=== PATIENT | female | born 1985 | race Caucasian/White ===

== ENCOUNTER → 2017-06-26 | Outpatient (CLI) | payer OTHER ==
[~2017-06-26] MED LIST: Ferrous Sulfat325 M2 PO; PNV PRENATAL P1 EACH PO
[2017-06-28 13:34] LABS: HPV Genotype 16 Not Detected (NOTDET); HPV Genotype 18 Not Detected (NOTDET)
[2017-07-02 10:54] LABS: HPV High Risk Other Not Detected (NOTDET)
== END | disposition home or self-care (01) ==
LOC: LAB 18:08
PROVIDERS: Obstetrics & Gynecology
DX: Z36.89 Encounter for other specified antenatal screening (principal)
CPT/HCPCS: 87491; 87591; 87624; G0123

== ENCOUNTER → 2017-07-26 | Outpatient (CLI) | payer OTHER ==
[2017-07-26 11:22] LABS: Source, Urine Clean Catch
[2017-07-26 13:54] LABS: Appearance, Urine Clear (Clear); Bilirubin, Urine Neg (Neg); Blood, Urine Neg (Neg); Color, Urine Yellow (P-Yellow); Glucose Qualitative, Urine Neg (Neg); Ketones, Urine Neg (Neg); Leukocyte Esterase, Urine Neg (Neg); Nitrite, Urine Neg (Neg); Protein, Urine Neg (Neg); Specific Gravity, Urine 1.015 (1.003-1.022); Urobilinogen, Urine NORM (Normal); pH, Urine 6.5 (5.0-8.0)
== END | disposition home or self-care (01) ==
LOC: LAB 11:10
PROVIDERS: Obstetrics & Gynecology
DX: R82.90 Unspecified abnormal findings in urine (principal)
CPT/HCPCS: 81003

== ENCOUNTER → 2017-10-11 | Outpatient (CLI) | payer OTHER ==
[2017-10-11 13:11] LABS: Hematocrit 37.4 % (33.0-51.0); Hemoglobin 12.6 g/dL (11.5-16.0)
== END ==
LOC: LAB SHORT 13:04 → LAB 13:04
PROVIDERS: Obstetrics & Gynecology
DX: Z34.81 Encounter for supervision of other normal pregnancy, first trimester (principal)
CPT/HCPCS: 82950; 85014; 85018

== ENCOUNTER → 2017-11-26 | Outpatient (CLI) | payer OTHER | END | disposition home or self-care (01) | LOC: LAB SHORT 15:27 → LAB 15:27 | DX: Z34.80 Encounter for supervision of other normal pregnancy, unspecified trimester (principal) | CPT/HCPCS: 87081; 87653 ==

== ENCOUNTER 2017-12-23 05:51 | Inpatient (IN) | payer OTHER ==
[2017-12-24 06:51] LABS: Hematocrit 34.8 % (33.0-51.0); Hemoglobin 12.1 g/dL (11.5-16.0); Mean Corpuscular HGB Conc 34.8 g/dL (31.5-36.5); Mean Corpuscular Volume 89 fL (80-100); Mean Platelet Volume 10.4 fL (9.1-12.4); Platelet Count 218 K/mm3 (150-400); RDW Coefficient Variation 13.2 % (11.7-14.2); RDW Standard Deviation 42.9 fL (35.1-46.3); White Blood Cell Count 12.03 K/mm3 (4.00-11.30)
== END 2017-12-24 10:08 | disposition home or self-care (01) | DRG 775 ==
LOC: BC 05:51
PROVIDERS: Obstetrics & Gynecology
PROC: 10E0XZZ Delivery of Products of Conception, External Approach (ICD-10-PCS; principal; 2017-12-23)
PROC: 0HQ9XZZ Repair Perineum Skin, External Approach (ICD-10-PCS; 2017-12-23)
DX: O62.3 Precipitate labor (principal); O70.0 First degree perineal laceration during delivery; Z3A.39 39 weeks gestation of pregnancy; Z37.0 Single live birth; Z87.891 Personal history of nicotine dependence; Z86.59 Personal history of other mental and behavioral disorders
CPT/HCPCS: 36415; 85027

== ENCOUNTER → 2020-04-11 | Outpatient (CLI) | payer BC ==
[2020-04-11 19:18] LABS: Bacteria Mod /hpf; Red Blood Cells, Urine 0-2 /hpf (0-2); Squamous Epithelial Cells Not Seen /hpf (Few); White Blood Cells, Urine 0-2 /hpf (0-5)
== END | disposition home or self-care (01) ==
LOC: OLS 18:00 → LAB SHORT 18:00
PROVIDERS: Advanced Practice Midwife
DX: O09.521 Supervision of elderly multigravida, first trimester (principal)
CPT/HCPCS: 81015; 87086

== ENCOUNTER → 2020-09-19 | Outpatient (CLI) | payer BC | LOC: LAB SHORT 11:29 → LAB 11:29 | DX: O09.92 Supervision of high risk pregnancy, unspecified, second trimester (principal) | CPT/HCPCS: 87081; 87150 ==

== ENCOUNTER 2020-10-13 04:56 | Inpatient (IN) | payer BC ==
[~2020-10-13] VITALS: Ht 172.7 cm; Wt 97.7 kg
[2020-10-13 05:45] LABS: BASOPHILS ABSOLUTE AUTO 0.04 K/mm3 (0.00-0.23); BASOPHILS PERCENT AUTO 0 % (0-2); EOSINOPHILS ABSOLUTE AUTO 0.18 K/mm3 (0.00-0.68); EOSINOPHILS PERCENT AUTO 2 % (0-6); Hematocrit 38.8 % (33.0-51.0); IMMATURE GRAN ABSOLUTE AUTO 0.07 K/mm3 (0.00-0.10); IMMATURE GRAN PERCENT AUTO 1 % (0-1); LYMPHOCYTES ABSOLUTE AUTO 2.57 K/mm3 (0.84-5.20); LYMPHOCYTES PERCENT AUTO 27 % (21-46); MONOCYTES ABSOLUTE AUTO 0.53 K/mm3 (0.16-1.47); MONOCYTES PERCENT AUTO 6 % (4-13); Mean Corpuscular HGB 29.7 pg (26.0-34.0); Mean Corpuscular HGB Conc 33.5 g/dL (31.5-36.5); Mean Corpuscular Volume 89 fL (80-100); Mean Platelet Volume 10.3 fL (9.1-12.4); NEUTROPHILS ABSOLUTE AUTO 6.13 K/mm3 (1.96-9.15); NEUTROPHILS PERCENT AUTO 64 % (41-73); NRBC ABSOLUTE 0.02 K/mm3 (0.00-0.02); NRBC Auto 0.2 /100 WBC (0.0-0.2); Platelet Count 242 K/mm3 (150-400); RDW Coefficient Variation 16.7 % (11.7-14.2); RDW Standard Deviation 54.4 fL (35.1-46.3); Red Blood Cell Count 4.38 M/mm3 (3.80-5.20); White Blood Cell Count 9.52 K/mm3 (4.00-11.30)
--- NOTE | 2020-10-13 14:02 | NUR ---
PT REQUESTING TO GO HOME SHE IS ON 20 MU [employer]IT[employer] AND WASN'T WORKING. REQUEST TO TURN OFF & DC HOME. OK PER ALDO HAYDEN CNM. LABOR PRECAUTIONS REVIEWED AND PT WILL RETURN IF SHE HAS BLEEDING, ROM, OR ANY ACTIVE LABOR SYMPTOMS OR QUESTIONS/CONCERNS. WILL RETURN THURSDAY 10/19 FOR TRIAL TO DO IOL AGAIN IF SHE DOES NOT SPONTANEOUSLY GO IN TO LABOR ON HER OWN. QUESTIONS ANSWERED, IV DC/D & PT DC HOME WITH AT SIDE.
== END 2020-10-13 14:10 | disposition home or self-care (01) | DRG 833 ==
LOC: OBS 04:56 → BC 04:59 → OBS 05:19 → BC 05:21
PROVIDERS: ADMIT Advanced Practice Midwife
PROC: 3E033VJ Introduction of Other Hormone into Peripheral Vein, Percutaneous Approach (ICD-10-PCS; principal; 2020-10-13)
DX: O61.0 Failed medical induction of labor (principal); Z3A.39 39 weeks gestation of pregnancy; Z87.891 Personal history of nicotine dependence
CPT/HCPCS: 36415; 85025; 86850; 86900; 86901; A9270; J2590; J7120; U0004

== ENCOUNTER 2020-10-19 04:56 | Inpatient (IN) | payer BC ==
[~2020-10-19] VITALS: Ht 172.7 cm; Wt 97.7 kg
[2020-10-19 05:37] LABS: BASOPHILS ABSOLUTE AUTO 0.03 K/mm3 (0.00-0.23); BASOPHILS PERCENT AUTO 0 % (0-2); EOSINOPHILS ABSOLUTE AUTO 0.18 K/mm3 (0.00-0.68); EOSINOPHILS PERCENT AUTO 2 % (0-6); Hematocrit 36.8 % (33.0-51.0); Hemoglobin 12.7 g/dL (11.5-16.0); IMMATURE GRAN ABSOLUTE AUTO 0.06 K/mm3 (0.00-0.10); IMMATURE GRAN PERCENT AUTO 1 % (0-1); LYMPHOCYTES ABSOLUTE AUTO 2.27 K/mm3 (0.84-5.20); LYMPHOCYTES PERCENT AUTO 25 % (21-46); MONOCYTES PERCENT AUTO 4 % (4-13); Mean Corpuscular HGB 30.1 pg (26.0-34.0); Mean Corpuscular HGB Conc 34.5 g/dL (31.5-36.5); Mean Corpuscular Volume 87 fL (80-100); Mean Platelet Volume 10.5 fL (9.1-12.4); NEUTROPHILS ABSOLUTE AUTO 6.13 K/mm3 (1.96-9.15); NEUTROPHILS PERCENT AUTO 68 % (41-73); Platelet Count 231 K/mm3 (150-400); RDW Coefficient Variation 16.4 % (11.7-14.2); RDW Standard Deviation 52.8 fL (35.1-46.3); Red Blood Cell Count 4.22 M/mm3 (3.80-5.20); White Blood Cell Count 9.07 K/mm3 (4.00-11.30)
[2020-10-19 06:35] LABS: SARS-Cov-2 (COVID-19) PCR, MMC NEGATIVE (NEGATIVE)
--- NOTE | 2020-10-19 14:45 | NUR ---
PT IN [facility] WHEN GOT A CALL FROM MARTHA CHICAS TO CHECK VE ON PATIENT. WENT IN ROOM TO GET PATIENT OUT OF THE TUB. SHE WAS FEELING MORE PRESSURE/PUSHY/GRUNTY. SLOW MOVING TO THE BED PT WAS HAVING BACK TO BACK CONTRACTIONS. PT GAVE VERBAL CONSENT TO VAGINAL EXAM. ANTERIOR LIP FELT BY RN AND RN CALLED NURSES STATION TO HAVE THEM CALL IN THE CNM. PT HAVING UNCONTROLLABLE PUSHING WITH CONTRACTIONS. EXTRA STAFF AT BEDSIDE. PT DELIVERED INTO HANDS OF RN WHO RELEASED A LOOSE NUCHAL CORD AND PLACED BABY ON MOTHER'S ABDOMEN TO DRY AND STIMULATE. INITIAL OF 9. BLEEDING INCREASING PLACENTA NEEDED TO DETACH, RN CLAMPED AND STUDENT NURSE CUT THE CORD WITH MOTHER'S PERMISSION. 5 MIN OF 9. BROUGHT UP TO MOMS CHEST. MARTHA CHICAS IN ROOM. FOR DELIVERY OF PLACENTA.
[2020-10-20 05:38] LABS: Hematocrit 36.1 % (33.0-51.0); Mean Corpuscular HGB 29.5 pg (26.0-34.0); Mean Corpuscular HGB Conc 33.2 g/dL (31.5-36.5); Mean Corpuscular Volume 89 fL (80-100); Mean Platelet Volume 10.5 fL (9.1-12.4); Platelet Count 221 K/mm3 (150-400); RDW Coefficient Variation 16.3 % (11.7-14.2); RDW Standard Deviation 52.9 fL (35.1-46.3); Red Blood Cell Count 4.07 M/mm3 (3.80-5.20); White Blood Cell Count 13.19 K/mm3 (4.00-11.30)
--- NOTE | 2020-10-20 14:27 | NUR ---
D/C HOME WITH INSTRUCTIONS.
== END 2020-10-20 14:30 | disposition home or self-care (01) | DRG 807 ==
LOC: OBS 04:56 → BC 04:57 → OBS 05:03 → BC 05:04
PROVIDERS: ADMIT Advanced Practice Midwife
PROC: 10E0XZZ Delivery of Products of Conception, External Approach (ICD-10-PCS; principal; 2020-10-19)
PROC: 10907ZC Drainage of Amniotic Fluid, Therapeutic from Products of Conception, Via Natural or Artificial Opening (ICD-10-PCS; 2020-10-19)
PROC: 3E033VJ Introduction of Other Hormone into Peripheral Vein, Percutaneous Approach (ICD-10-PCS; 2020-10-19)
DX: O70.0 First degree perineal laceration during delivery (principal); Z37.0 Single live birth; Z87.891 Personal history of nicotine dependence; Z3A.40 40 weeks gestation of pregnancy; O62.3 Precipitate labor
CPT/HCPCS: 36415; 85025; 85027; 86850; 86900; 86901; J2210; J2590; J7120; U0004

== ENCOUNTER → 2023-07-17 | Outpatient (CLI) | payer BC ==
[~2023-07-17] MED LIST changes: +CEPH500 PO; +HYDR1TAB94 PO
== END ==
LOC: LAB SHORT 16:34 → LAB 16:34
DX: O09.92 Supervision of high risk pregnancy, unspecified, second trimester (principal); Z3A.00 Weeks of gestation of pregnancy not specified
CPT/HCPCS: 87081; 87150

== ENCOUNTER 2023-11-21 07:58 | Day surgery (SDC) | payer BC ==
[~2023-11-21] VITALS: Ht 172.7 cm; Wt 90.8 kg
[~2023-11-21 07:58] MED LIST changes: +Ropivacaine 0.5% HCl/Pf 5 MG/ML 20ML VIAL ONE
[2023-11-21] MEDS ORDERED: Lactated Ringer's 1,000 ML IV ONE (08:12)
[2023-11-21] MEDS ORDERED: propofoL 20 ML IV ONE (09:12)
[2023-11-21] MEDS ORDERED: FentaNYL Citrate 50 MCG/ML 2 ML Injection ONE (09:12)
[2023-11-21] MEDS ORDERED: Dexamethasone Sod Phos 10 MG/ML 1ML VIAL ONE (09:22)
[2023-11-21] MEDS ORDERED: Rocuronium Bromide 10 MG/ML 5ML Injection IV ONE (09:22)
[2023-11-21] MEDS ORDERED: Ondansetron HCl 2 MG / ML 2ML Vial ONE (09:22)
[2023-11-21] MEDS ORDERED: Ketorolac Tromethamine 30mg Vial ONE (09:23)
[2023-11-21] MEDS ORDERED: DiphenhydrAMINE HCl 50 MG/ML 1ML Vial ONE (09:23)
[2023-11-21] MEDS ORDERED: EPINEPhrine HCl 1 MG/ML 1ML Amp XX ONE (09:35)
[2023-11-21] MEDS ORDERED: Sugammadex Sodium 200 MG/2ML SDV (100 MG/ML) ONE (09:41)
[2023-11-21] MEDS ORDERED: Silver Nitr/Potassium Nitrate 1 EA APPL ONE (09:50)
[2023-11-21 10:50] VITALS: BP 149/87
== END 2023-11-21 11:38 | disposition home or self-care (01) ==
LOC: ORSCSDS 07:58
PROVIDERS: Obstetrics & Gynecology
PROC: 0UT74ZZ Resection of Bilateral Fallopian Tubes, Percutaneous Endoscopic Approach (ICD-10-PCS; principal; 2023-11-21 09:15)
DX: Z30.2 Encounter for sterilization (principal)
CPT/HCPCS: 88302; A9270; J0171; J1100; J1200; J1885; J2405; J2704; J2795; J3010